=== PATIENT | female | born 1955 ===

== ENCOUNTER 2017-04-24 21:21 | Observation (INO) | payer MEDICAID, OTHER ==
[2017-04-24 21:26] VITALS: BMI 29.5
[2017-04-24] MEDS ORDERED: Sodium Chloride 0.9% 500 ML IV STA (21:44)
--- NOTE | 2017-04-24 21:46 | ED PDOC ---
HPI: Chest Pain Time Seen by Provider: 04/24/17 21:34 Chief Complaint (Nursing): Chest Pain Chief Complaint (Provider): Chest pain History Per: Patient History/Exam Limitations: no limitations Onset/Duration Of Symptoms: Days (3 weeks), Waxing/Waning Current Symptoms Are (Timing): Gone Now Additional Complaint(s): Chest pain left off and on. No dyspnea. Has weakness and occasionally light- headed. No fever, cough, leg pain, nausea, numbness, tingles. No abd pain. Currently no pain or dizziness. Headaches mild off and on, currently none. Not the worst headache of her life. PCP Parish Tucker. Past Medical History Reviewed: Nursing Documentation, Vital Signs Vital Signs: Last Vital Signs Temp 97.9 F 04/24/17 21:26 Pulse 88 04/24/17 21:26 Resp 16 04/24/17 21:26 BP 123/73 04/24/17 21:26 Pulse Ox 98 04/24/17 23:35 - Medical History PMH: HTN Other PMH: thyroid dz - Surgical History Surgical History: Appendectomy, Cholecystectomy - Family History Family History: States: Unknown Family Hx - Living Arrangements Living Arrangements: With Family - Social History Current smoker - smoking cessation education provided: No Alcohol: None Drugs: Denies - Home Medications Home Medications: Ambulatory Orders Medication Instructions Recorded Levocetirizine Dihydrochloride 5 mg PO DAILY 04/24/17 [Xyzal] Losartan/Hydrochlorothiazide 100 mg PO DAILY 04/24/17 [Losartan-Hctz 100-25 mg Tab] Zolpidem [Ambien] 5 mg PO PRN PRN 04/24/17 - Allergies Allergies/Adverse Reactions: Allergies Allergy/AdvReac Type Severity Reaction Status Date / Time No Known Allergies Allergy Verified 04/24/17 21:26 JEANINE Risk Score for UA/NSTEMI - JEANINE Risk Score Age > 64: NO 3 or more CAD Risk Factors: NO Known CAD (Stenosis greater than 50%): NO Aspirin use in past 7 days: NO Severe Angina: NO EKG ST changes greater than 0.5mm: NO Positive Cardiac Marker: NO JEANINE Score: 0 Risk %: 5% Review of Systems ROS Statement: Except As Marked, All Systems Reviewed And Found Negative Constitutional: Positive for: Weakness Cardiovascular: Positive for: Chest Pain Neurological: Positive for: Weakness, Headache, Dizziness Physical Exam - Reviewed Nursing Documentation Reviewed: Yes Vital Signs Reviewed: Yes - Physical Exam Appears: Positive for: Non-toxic, No Acute Distress Head Exam: Positive for: ATRAUMATIC, NORMAL INSPECTION, NORMOCEPHALIC Skin: Positive for: Normal Color, Warm, DRY Eye Exam: Positive for: EOMI, Normal appearance, PERRL ENT: Positive for: Normal ENT Inspection Neck: Positive for: Normal, Painless ROM Cardiovascular/Chest: Positive for: Regular Rate, Rhythm. Negative for: Edema Respiratory: Positive for: CNT, Normal Breath Sounds Gastrointestinal/Abdominal: Positive for: Normal Exam, Bowel Sounds, Soft. Negative for: Tenderness Back: Positive for: Normal Inspection. Negative for: L CVA Tenderness, R CVA Tenderness Extremity: Positive for: Normal ROM. Negative for: Tenderness, Pedal Edema Neurologic/Psych: Positive for: Alert, caregivers homecare II-XII, Oriented. Negative for: Motor/Sensory Deficits - Laboratory Results Result Diagrams: 04/24/17 22:45 04/24/17 22:45 Interpretation Of Abn Labs: no acute - ECG ECG: Positive for: Interpreted By Me, Viewed By Me ECG Rhythm: Positive for: Normal QRS, Normal ST Segment, Sinus Rhythm O2 Sat by Pulse Oximetry: 98 Pulse Ox Interpretation: Normal - Radiology X-Ray: Interpreted by Me, Viewed By Wy X-Ray Interpretation: No Acute Disease - Progress ED Course And Treament: 2336: Stable. Dr. Rae made aware and will admit obs tele. Will give further orders when pt. reaches floor. Pt. is pain free currently. Disposition - Clinical Impression Clinical Impression: Chest pain - Patient ED Disposition Is Patient to be Admitted: Yes Counseled Patient/Family Regarding: Studies Performed, Diagnosis - Disposition Disposition Time: 23:38 Condition: STABLE - Pt Status Changed To: Hospital Disposition Of: Observation - POA Present On Arrival: None Core Measure Indicators: Chest Pain
[2017-04-24 22:51] LABS: BASO # 0.3 K/uL (0.0-0.2); BASO % 3.8 % (0.0-2.0); EOS # 0.1 K/uL (0.0-0.7); EOS % 1.6 % (0.0-4.0); HEMOGLOBIN 14.4 g/dL (12.0-16.0); LYMPH # 3.8 K/uL (1.0-4.3); MEAN CELL VOLUME 80.4 fl (81.0-99.0); MEAN CORPUSCULAR HEMOGLOBIN 26.4 pg (27.0-31.0); MEAN CORPUSCULAR HGB CONC 32.8 g/dL (33.0-37.0); MEAN PLATELET VOLUME 8.6 fl (7.2-11.7); MONO # 0.6 K/uL (0.0-0.8); MONO % 8.1 % (0.0-10.0); NEUT # 2.1 K/uL (1.8-7.0); NEUT % 30.5 % (50.0-75.0); NRBC % 0.1 % (0.0-0.0); PLATELET COUNT 260 K/uL (130-400); RBC 5.46 Mil/uL (3.80-5.20); RED CELL DISTRIBUTION WIDTH 13.8 % (11.5-14.5); WHITE BLOOD COUNT 6.8 K/uL (4.8-10.8)
[2017-04-24 23:13] LABS: BLOOD UREA NITROGEN 19 mg/dl (7-17); CALCIUM 9.5 mg/dL (8.4-10.2); GFR AFRICAN-AMERICAN > 60; GFR NON-AFRICAN AMERICAN > 60
[2017-04-24 23:43] LABS: ANISOCYTOSIS SLIGHT; BASOPHIL 5 % (0-2); EOSINOPHIL 1 % (0-7); LARGE PLATELETS PRESENT; LYMPHOCYTE 51 % (20-50); MONOCYTE 6 % (0-10); NEUTROPHIL 37 % (42-75); OVALOCYTES SLIGHT; PLATELET ESTIMATE NORMAL (NORMAL); POIKILOCYTOSIS SLIGHT; TEARDROP CELLS SLIGHT; TOTAL CELLS COUNTED 100
--- NOTE | 2017-04-25 08:24 | RAD ---
HISTORY: pain COMPARISON: No prior. FINDINGS: LUNGS: No active pulmonary disease. PLEURA: No significant pleural effusion identified, no pneumothorax apparent. CARDIOVASCULAR: Normal. OSSEOUS STRUCTURES: No significant abnormalities. VISUALIZED UPPER ABDOMEN: Normal. OTHER FINDINGS: None. IMPRESSION: No active disease.
--- NOTE | 2017-04-25 09:45 | CARD ---
APPROVED REPORT EKG Measurement Heart [id number] <Conclusion> Normal sinus rhythm Septal infarct, age undetermined Abnormal ECG
[2017-04-25] MEDS: HCTZ/Losartan 12.5/50 Tab PO SCH (14:24)
[2017-04-26 08:24] VITALS: PULSE 70; RESP 18
[2017-04-26] MEDS: HCTZ/Losartan 12.5/50 Tab PO SCH (08:42)
--- NOTE | 2017-04-26 10:17 | CP.PCM.HP ---
History of Present Illness - History of Present Illness History of Present Illness: This is a 61 y/o male admitted for chest pain last night. Claims that she has been having on and off chest wall pain for few days and progressively worsen. Past Patient History - Past Medical History & Family History Past Medical History?: Yes - Past Social History Smoking Status: Never Smoked - CARDIAC Hx Cardiac Disorders: Yes (HTN) - PULMONARY Hx Respiratory Disorders: No - NEUROLOGICAL Hx Neurological Disorder: No - HEENT Hx HEENT Problems: No - RENAL Hx Chronic Kidney Disease: No - ENDOCRINE/METABOLIC Hx Endocrine Disorders: No - HEMATOLOGICAL/ONCOLOGICAL Hx Blood Disorders: No - INTEGUMENTARY Hx Dermatological Problems: No - MUSCULOSKELETAL/RHEUMATOLOGICAL Hx Musculoskeletal Disorders: No Hx Falls: No - GENITOURINARY/GYNECOLOGICAL Hx Genitourinary Disorders: No - PSYCHIATRIC Hx Psychophysiologic Disorder: No Hx Substance Use: No - SURGICAL HISTORY Hx Appendectomy: Yes Hx Cholecystectomy: Yes - ANESTHESIA Hx Anesthesia: Yes Hx Anesthesia Reactions: No Hx Malignant Hyperthermia: No Meds Allergies/Adverse Reactions: Allergies Allergy/AdvReac Type Severity Reaction Status Date / Time No Known Allergies Allergy Verified 04/24/17 21:26 Results - Vital Signs Recent Vital Signs: Last Vital Signs Temp 97.7 F 04/26/17 08:00 Pulse 70 04/26/17 08:00 Resp 18 04/26/17 08:00 BP 109/68 04/26/17 08:00 Pulse Ox 97 04/26/17 08:00 - Labs Result Diagrams: 04/24/17 22:45 04/24/17 22:45 Labs: Laboratory Results - last 24 hr 04/25/17 04/25/17 12:30 20:23 Troponin I < 0.0120 < 0.0120
--- NOTE | 2017-04-26 10:18 | CP.PCM.DIS ---
Provider - Provider Date of Admission: 04/24/17 23:38 Attending physician: Krevin Rae MD Hospital Course - Lab Results Lab Results: Most Recent Lab Values WBC 6.8 K/uL (4.8-10.8) D 04/24/17 22:45 RBC 5.46 Mil/uL (3.80-5.20) H 04/24/17 22:45 Hgb 14.4 g/dL (12.0-16.0) 04/24/17 22:45 Hct 43.9 % (34.0-47.0) 04/24/17 22:45 MCV 80.4 fl (81.0-99.0) L 04/24/17 22:45 MCH 26.4 pg (27.0-31.0) L 04/24/17 22:45 MCHC 32.8 g/dL (33.0-37.0) L 04/24/17 22:45 RDW 13.8 % (11.5-14.5) 04/24/17 22:45 Plt Count 260 K/uL (130-400) 04/24/17 22:45 MPV 8.6 fl (7.2-11.7) 04/24/17 22:45 Neut % (Auto) 30.5 % (50.0-75.0) L 04/24/17 22:45 Lymph % (Auto) 56.0 % (20.0-40.0) H 04/24/17 22:45 [place] % (Auto) 8.1 % (0.0-10.0) 04/24/17 22:45 Eos % (Auto) 1.6 % (0.0-4.0) 04/24/17 22:45 Baso % (Auto) 3.8 % (0.0-2.0) H 04/24/17 22:45 Neut # 2.1 K/uL (1.8-7.0) 04/24/17 22:45 Lymph # 3.8 K/uL (1.0-4.3) 04/24/17 22:45 [place] # 0.6 K/uL (0.0-0.8) 04/24/17 22:45 Eos # 0.1 K/uL (0.0-0.7) 04/24/17 22:45 Baso # 0.3 K/uL (0.0-0.2) H 04/24/17 22:45 Neutrophils % (Manual) 37 % (42-75) L 04/24/17 22:45 Lymphocytes % (Manual) 51 % (20-50) H 04/24/17 22:45 Monocytes % (Manual) 6 % (0-10) 04/24/17 22:45 Eosinophils % (Manual) 1 % (0-7) 04/24/17 22:45 Basophils % (Manual) 5 % (0-2) H 04/24/17 22:45 Platelet Estimate Normal (NORMAL) 04/24/17 22:45 Large Platelets Present 04/24/17 22:45 Poikilocytosis (manual Slight 04/24/17 22:45 Anisocytosis (manual) Slight 04/24/17 22:45 Tear Drop Cells Slight 04/24/17 22:45 Ovalocytes Slight 04/24/17 22:45 Sodium 142 mmol/l (132-148) 04/24/17 22:45 Potassium 3.6 MMOL/L (3.6-5.0) 04/24/17 22:45 Chloride 106 mmol/L (98-107) 04/24/17 22:45 Carbon Dioxide 25 mmol/L (22-30) 04/24/17 22:45 Anion Gap 15 (10-20) 04/24/17 22:45 BUN 19 mg/dl (7-17) H 04/24/17 22:45 Creatinine 0.7 mg/dL (0.7-1.2) 04/24/17 22:45 Est GFR ( Amer) > 60 04/24/17 22:45 Est GFR (Non-Af Amer) > 60 04/24/17 22:45 Random Glucose 106 mg/dL (65-105) H 04/24/17 22:45 Calcium 9.5 mg/dL (8.4-10.2) 04/24/17 22:45 Troponin I < 0.0120 ng/mL (0.00-0.120) 04/25/17 20:23 - Hospital Course Hospital Course: This is a 61 y/o male admitted for chest pain. All troponins were negative and EKG was normal. Discharge Exam - Head Exam Head Exam: ATRAUMATIC, NORMAL INSPECTION, NORMOCEPHALIC Discharge Plan - Follow Up Plan Condition: STABLE Disposition: HOME/ ROUTINE
[2017-04-26 12:29] VITALS: BP 102/64; TEMP 97.9; O2SAT 98
== END 2017-04-26 14:25 | disposition home or self-care (01) ==
LOC: H.ER 21:21 → H.ERHOLD 23:38 → H.TEL 04-25 01:11
PROVIDERS: ADMIT Family Medicine; ATTEND Family Medicine
DX: R07.89 Other chest pain (principal); I10 Essential (primary) hypertension

== ENCOUNTER 2018-09-16 19:30 | Emergency (ER) | payer MEDICAID, SELFPAY ==
[2018-09-16 19:30] VITALS: BMI 29.5
[2018-09-16 20:31] VITALS: TEMP 97.8; O2SAT 99
--- NOTE | 2018-09-16 21:42 | ED PDOC ---
HPI: Back Time Seen by Provider: 09/16/18 21:23 Chief Complaint (Nursing): Back Pain Chief Complaint (Provider): Back Pain History Per: Patient History/Exam Limitations: no limitations Onset/Duration Of Symptoms: Days (1x) Current Symptoms Are (Timing): Still Present Quality Of Discomfort: Cramping, Other (squeezing) Pain Scale Rating Of: 9 Associated Symptoms: None Exacerbating Factor(s): Movement, Other (walking) Additional Complaint(s): 62 year old female with a past medical history of hypertension presents to the ED for evaluation of left lower back pain that started this morning. 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 Patient describes the pain as cramping and squeezing and a level 9/10 with no radiation. Patient reports that the pain worsens with movement and ambulation. Patient reports taking an unknown pain medication 3x hours prior to arrival with no relief. Otherwise: (-) prior back injury/surgery, (-) fevers, (-) numbness, (-) weakness, (-) saddle anesthesia, (-) urinary symptoms, (-) incontinence, (-) other complaints. PMD: Kervin Rae MD Past Medical History Reviewed: Historical Data, Nursing Documentation, Vital Signs Vital Signs: Last Vital Signs Temp 97.8 F 09/16/18 20:29 Pulse 105 H 09/16/18 20:29 Resp 20 09/16/18 20:29 BP 156/102 H 09/16/18 20:29 Pulse Ox 99 09/16/18 20:29 - Medical History PMH: HTN - Surgical History Surgical History: Appendectomy, Cholecystectomy - Family History Family History: States: No Known Family Hx - Social History Current smoker - smoking cessation education provided: No Alcohol: None Drugs: Denies - Home Medications Home Medications: Ambulatory Orders Medication Instructions Recorded RX: Levocetirizine Dihydrochloride 5 mg PO DAILY 04/24/17 [Xyzal] RX: Losartan/Hydrochlorothiazide 100 mg PO DAILY 04/24/17 [Losartan-Hctz 100-25 mg Tab] RX: Zolpidem [Ambien] 5 mg PO PRN PRN 04/24/17 Meloxicam [Mobic] 15 mg PO DAILY PRN #10 tab 09/16/18 Methocarbamol [Robaxin] 750 mg PO TID PRN #12 tab 09/16/18 - Allergies Allergies/Adverse Reactions: Allergies Allergy/AdvReac Type Severity Reaction Status Date / Time No Known Allergies Allergy Verified 09/16/18 20:29 Review of Systems ROS Statement: Except As Marked, All Systems Reviewed And Found Negative Constitutional: Negative for: Fever Genitourinary Female: Negative for: Dysuria, Incontinence Musculoskeletal: Positive for: Back Pain (left lower) Neurological: Negative for: Weakness, Numbness, Other (saddle anesthesia) Physical Exam - Reviewed Nursing Documentation Reviewed: Yes Vital Signs Reviewed: Yes - Physical Exam Comments: GENERAL APPEARANCE: Patient is awake, alert, oriented x 3; uncomfortable appearing. SKIN: Warm, dry; (-) cyanosis. EYES: (-) conjunctival pallor. ENMT: Mucous membranes moist. NECK: Supple, FROM CHEST AND RESPIRATORY: (-) rales, (-) rhonchi, (-) wheezes; breath sounds equal bilaterally. Respirations even and nonlabored. HEART AND CARDIOVASCULAR: (-) irregularity ABDOMEN AND GI: Soft; (-) tenderness (-) distention (-) guarding; (-) palpable mass. BACK: (+) left paralumbar and left sciatic notch tenderness, (-) direct bony tenderness, (-) deformity. EXTREMITIES: (-) deformity. Distal pulses good bilaterally. NEURO AND PSYCH: Mental status as above. Ambulating in the ED with a steady gait. Intact sensation bilaterally; normal strength in extension of the knees, plantar and dorsiflexion of the toes. Speech: clear (-) facial asymmetry (-) aphasia - ECG O2 Sat by Pulse Oximetry: 99 (RA) Pulse Ox Interpretation: Normal Medical Decision Making Medical Decision Makin:20 Clinical impression: 62 year old female with acute back pain and lumbar strain Initial plan: * toradol 15 mg IM * valium 5 mg PO once (not driving home) * reevaluation 2340 Repeat HR: 80 Repeat BP: 132/72 On re-evaluation, patient reports improvement of symptoms. On exam, patient remains AAOx3, in no acute distress. Lungs clear to auscultation, cardiac RRR, abdomen soft, non-tender, repeat neuro exam shows no focal findings. Vitals stable. Lab/Diagnostic results d/w the patient in great detail. Diagnosis of acute back pain, lumbar muscle strain d/w the patient. Based on history, exam and diagnostic results, plan will be for outpatient follow up with PMD/ortho. Patient instructed to follow-up with pmd / referral provided / the clinic in 1- 2 days without fail. Advised to take medication as prescribed. Return to the emergency room at any time for any new or worsening symptoms. Patient states she fully agrees with and understands discharge instructions. States that she agrees with the plan and disposition. Verbalized and repeated discharge instructions and plan. I have given the patient opportunity to ask any additional questions. Scribe Attestation: Documented bySamina Tirado, acting as a scribe for Samina Medina Provider Scribe Attestation: All medical record entries made by the Scribe were at my direction and personally dictated by me. I have reviewed the chart and agree that the record accurately reflects my personal performance of the history, physical exam, medical decision making, and the department course for this patient. I have also personally directed, reviewed, and agree with the discharge instructions and disposition. Disposition - Clinical Impression Clinical Impression: Low back pain, Strain of lumbar paraspinal muscle - Patient ED Disposition Is Patient to be Admitted: No Counseled Patient/Family Regarding: Studies Performed, Diagnosis, Need For Followup, Rx Given - Disposition Referrals: Rita Lemus MD [Staff Provider] - Kervin Rae MD [Staff Provider] - Disposition: Routine/Home Disposition Time: 23:40 Condition: STABLE Additional Instructions: La atencin mdica de emergencia que recibi hoy se dirigi a linh sntomas agudos. Si le recetaron algn medicamento, llnelo y tmelo segn las indicaciones. Los sntomas pueden tardar varios machuca en resolverse. Regrese al Departamento de Emergencias si linh sntomas empeoran, no mejoran o si tiene otros problemas. Comunquese con renteria mdico dentro de 2 machuca para adia nueva evaluacin y anjel un seguimiento o llame a ismael de los mdicos / clnicas a los que carty sido referido y que figuran en el formulario de Informacin de visita al paciente que se incluye en renteria paquete de cornelio. Lleve todos los documentos que le entregaron al momento del cornelio junto con todos los medicamentos que est tomando para renteria visita de seguimiento. Nuestro tratamiento no puede reemplazar la atencin mdica continua por parte de un proveedor de atencin primaria (PCP) fuera del departamento de emergencias. Prescriptions: Meloxicam [Mobic] 15 mg PO DAILY PRN #10 tab PRN Reason: Pain, Moderate (4-7) Methocarbamol [Robaxin] 750 mg PO TID PRN #12 tab PRN Reason: Muscle Spasm Instructions: Low Back Pain in Adults, Back Exercises, Lumbar Muscle Strain (DC), Do I Need an X-ray (or Other Test) for Low Back Pain? Forms: [facility] (Polish) Print Language: TAJIK - POA Present On Arrival: None
[2018-09-16 23:49] VITALS: BP 132/72; PULSE 80; RESP 18
== END 2018-09-16 23:51 | disposition home or self-care (01) ==
LOC: H.ER 19:30
DX: S39.012A Strain of muscle, fascia and tendon of lower back, initial encounter (principal); I10 Essential (primary) hypertension; X58.XXXA Exposure to other specified factors, initial encounter
CPT/HCPCS: 96372; 99282; J1885